=== PATIENT | female | born 1995 | race Caucasian/White ===

== ENCOUNTER 2020-11-05 01:53 | Inpatient (IN) | payer SELFPAY ==
[~2020-11-05] VITALS: Ht 165.1 cm; Wt 81.8 kg
[2020-11-05] MEDS ORDERED: NEWBORN KIT ONE (02:35)
[2020-11-05] MEDS ORDERED: MISOPROSTOL 200 MCG TABLET ONE (02:36)
[2020-11-05] MEDS ORDERED: OXYTOCIN 30U/ 0.9% NaCL 500ML 500 ML ONE (02:36)
[2020-11-05] MEDS ORDERED: LIDOCAINE 1%, 20ML ONE (02:36)
[2020-11-05] MEDS ORDERED: OXYTOCIN 30U/ 0.9% NaCL 500ML 500 ML IV PRN (03:00)
[2020-11-05] MEDS ORDERED: ONDANSETRON 2MG/ML, 2ML IVPush PRN ×2 (03:00→07:30)
[2020-11-05] MEDS ORDERED: OXYTOCIN 30U/ 0.9% NaCL 500ML 500 ML IV ONE (03:00)
[2020-11-05] MEDS ORDERED: SODIUM CHLORIDE FLUSH 10ML SYR IVF PRN (03:00)
[2020-11-05] MEDS ORDERED: FENTANYL PF 100 MCG/2ML IV PRN (03:00)
[2020-11-05] MEDS ORDERED: LACTATED RINGERS 1,000 ML IV SCH ×2 (03:00→07:30)
[2020-11-05] MEDS ORDERED: D5%-LACTATED RINGERS 1,000 ML IV SCH (03:00)
[2020-11-05] MEDS ORDERED: TERBUTALINE 1 MG/ML, 1ML IVPush PRN (03:00)
[2020-11-05] MEDS ORDERED: TERBUTALINE 1 MG/ML, 1ML SQ PRN (03:00)
[2020-11-05] MEDS ORDERED: FENTANYL PF 100 MCG/2ML IVPush PRN (03:00)
[2020-11-05] MEDS ORDERED: CALCIUM CARBONATE 500 MG TAB.CHEW PO PRN (03:00)
[2020-11-05 03:33] LABS: BASOPHILS % (AUTO) 1 % (0-1); EOSINOPHILS % (AUTO) 2 % (1-7); LYMPHOCYTES % (AUTO) 21 % (22-44); MEAN CORPUSCULAR HEMOGLOBIN 29.4 pg (27.0-34.8); MEAN CORPUSCULAR HGB CONC 33.7 g/dL (32.4-35.8); MEAN PLATELET VOLUME 9.4 fL (7.4-10.4); MONOCYTES % (AUTO) 10 % (2-9); NEUTROPHILS % (AUTO) 65 % (42-75); PLATELET COUNT 221 x10^3/uL (130-400); RED BLOOD COUNT 4.31 x10^6/uL (3.82-5.3); RED CELL DISTRIBUTION WIDTH 14.7 % (9.6-15.2)
[2020-11-05] MEDS ORDERED: SERT100T PO (04:20)
[2020-11-05] MEDS ORDERED: ALBU90AE HOMEINH (04:20)
[2020-11-05 04:21] LABS: AMPHETAMINE SCREEN, URINE Negative (Negative); BARBITURATE SCREEN, URINE Negative (Negative); BENZODIAZEPINE SCREEN, URINE Negative (Negative); CANNABINOID SCREEN, URINE Positive (Negative); COCAINE SCREEN, URINE Negative (Negative); METHADONE SCREEN, URINE Negative (Negative); OPIATE SCREEN, URINE Negative (Negative)
[2020-11-05] MEDS ORDERED: ALBUTEROL HFA 90 MCG/SPRAY HOMEINH PRN (04:30)
[2020-11-05] MEDS ORDERED: BUPIVACAINE 0.25% ONE ×2 (06:12→11:27)
[2020-11-05] MEDS ORDERED: FENTANYL/BUPIV./NS/PF 250 ML EPIDCONT SCH ×2 (06:30→07:30)
[2020-11-05] MEDS ORDERED: DIPHENHYDRAMINE 50 MG/ML, 1ML IVPush PRN (07:30)
[2020-11-05] MEDS ORDERED: EPHEDRINE 50 MG/ML, 1ML IVPush PRN (07:30)
[2020-11-05] MEDS ORDERED: NALOXONE 0.4 MG/ML, 1ML IVPush PRN (07:30)
[2020-11-05] MEDS ORDERED: LACTATED RINGERS 1,000 ML IVBOLUS PRN (07:30)
[2020-11-05] MEDS ORDERED: PLEASE ENTER ALLERGIES MC SCH (08:00)
[2020-11-05 08:48] LABS: MICROSCOPIC NOT IND
[2020-11-05 08:49] LABS: ALBUMIN 2.5 g/dL (3.4-5.0); ANION GAP 8 mmol/L (5-15); CALCIUM 8.7 mg/dL (8.5-10.1); CHLORIDE 107 mmol/L (98-107)
[2020-11-05 08:52] LABS: ALANINE AMINOTRANSFERASE 12 U/L (12-78); ALKALINE PHOSPHATASE 175 U/L (45-117); BILIRUBIN,TOTAL 0.2 mg/dL (0.2-1.0); TOTAL PROTEIN 6.6 g/dL (6.4-8.2)
[2020-11-05 09:00] LABS: CREATININE,URINE RANDOM 19.1 mg/dL
[2020-11-05] MEDS ORDERED: OXYcodone/APAP 5/325MG TABLET ONE (18:17)
[2020-11-05] MEDS: SERTRALINE 100MG TABLET PO SCH (18:21)
[2020-11-05] MEDS: OXYcodone/APAP 5/325MG TABLET PO PRN ×2 (18:23→22:44)
[2020-11-05] MEDS ORDERED: CARBOPROST TROMETHAMINE 250 MCG/ML, 1ML IM PRN (18:30)
[2020-11-05] MEDS ORDERED: SIMETHICONE 80 MG CHEW TAB PO PRN (18:30)
[2020-11-05] MEDS ORDERED: MISOPROSTOL 200 MCG TABLET PR PRN (18:30)
[2020-11-05] MEDS ORDERED: GLYCERIN ADULT SUPP PR PRN (18:30)
[2020-11-05] MEDS ORDERED: OXYcodone IR 5MG TABLET PO PRN (18:30)
[2020-11-05] MEDS ORDERED: TRANEXAMIC ACID 100 MG/ML, 10ML IV ONE (18:30)
[2020-11-05] MEDS ORDERED: OXYcodone/APAP 5/325MG TABLET PO PRN (18:30)
[2020-11-05] MEDS ORDERED: ACETAMINOPHEN 325 MG TABLET PO PRN (18:30)
[2020-11-05 19:50] VITALS: BP 123/82
[2020-11-05] MEDS: OXYTOCIN 30U/ 0.9% NaCL 500ML 500 ML IV SCH (19:50)
[2020-11-05] MEDS: IBUPROFEN 800 MG TABLET PO PRN (22:43)
[2020-11-05] MEDS: DOCUSATE 100 MG CAPSULE PO PRN (22:43)
[2020-11-05 23:08] LABS: MEAN CORPUSCULAR HEMOGLOBIN 29.1 pg (27.0-34.8); MEAN CORPUSCULAR HGB CONC 33.7 g/dL (32.4-35.8); MEAN PLATELET VOLUME 9.4 fL (7.4-10.4); PLATELET COUNT 211 x10^3/uL (130-400); RED BLOOD COUNT 4.04 x10^6/uL (3.82-5.3); RED CELL DISTRIBUTION WIDTH 14.7 % (9.6-15.2)
[2020-11-05 23:35] LABS: <PLATELET ESTIMATE> ADEQUATE; <PLT MORPHOLOGY> NORMAL PLT MORPH; <RBC MORPHOLOGY> NORMAL; BANDS%(MANUAL) 4 % (0-7); EOS% (MANUAL) 1 % (1-7); LYMPH#(MANUAL) 2.41 x10^3/uL (1-3.4); LYMPHS% (MANUAL) 12 % (22-44); MONOS% (MANUAL) 3 % (2-9); SEG#(MANUAL) 16.08 x10^3/uL (1.8-6.8); SEGS% (MANUAL) 80 % (42-75)
[2020-11-06 01:15] VITALS: BP 115/69
[2020-11-06] MEDS: OXYTOCIN 30U/ 0.9% NaCL 500ML 500 ML IV SCH ×2 (04:30→14:30)
[2020-11-06 05:30] VITALS: BP 136/89
[2020-11-06] MEDS: OXYcodone/APAP 5/325MG TABLET PO PRN ×3 (07:24→16:01)
[2020-11-06] MEDS: IBUPROFEN 800 MG TABLET PO PRN (07:24)
[2020-11-06 07:30] VITALS: BP 137/94
[2020-11-06] MEDS ORDERED: PRENATAL VIT/IRON/FA 1 EACH TABLET PO SCH (09:00)
[2020-11-06] MEDS: SERTRALINE 100MG TABLET PO SCH (11:43)
[2020-11-06] MEDS: DOCUSATE 100 MG CAPSULE PO PRN (11:43)
[2020-11-06 12:26] VITALS: BP 144/93
[2020-11-06 13:38] VITALS: BP 148/100
[2020-11-06 14:00] VITALS: BP 130/84
[2020-11-06] MEDS ORDERED: IBUP-1222 PO (17:14)
== END 2020-11-06 18:30 | disposition home or self-care (01) | DRG 806 ==
LOC: LDOP 01:53 → LDIP 02:49 → 2NW 19:30
PROVIDERS: ADMIT Obstetrics & Gynecology; ATTEND Obstetrics & Gynecology
PROC: 10E0XZZ Delivery of Products of Conception, External Approach (ICD-10-PCS; principal; 2020-11-05)
PROC: 3E0R3BZ Introduction of Anesthetic Agent into Spinal Canal, Percutaneous Approach (ICD-10-PCS; 2020-11-05)
PROC: 00HU33Z Insertion of Infusion Device into Spinal Canal, Percutaneous Approach (ICD-10-PCS; 2020-11-05)
PROC: 0KQM0ZZ Repair Perineum Muscle, Open Approach (ICD-10-PCS; 2020-11-05)
DX: O77.0 Labor and delivery complicated by meconium in amniotic fluid (principal); O99.324 Drug use complicating childbirth; Z37.0 Single live birth; O99.52 Diseases of the respiratory system complicating childbirth; O76 Abnormality in fetal heart rate and rhythm complicating labor and delivery; O99.344 Other mental disorders complicating childbirth; F12.90 Cannabis use, unspecified, uncomplicated; O42.92 Full-term premature rupture of membranes, unspecified as to length of time between rupture and onset of labor; F32.9 Major depressive disorder, single episode, unspecified; J45.909 Unspecified asthma, uncomplicated; Z20.822 Contact with and (suspected) exposure to COVID-19; Z3A.38 38 weeks gestation of pregnancy; O70.1 Second degree perineal laceration during delivery
CPT/HCPCS: 36415; 80053; 80307; 81003; 82570; 84156; 84550; 85025; 86592; 86850; 86900; 87635; 89060; G0378; J2405; J2590; J7120; Q0114